=== PATIENT | male | born 1935 | race Caucasian/White ===

== ENCOUNTER 2021-07-09 04:01 | Inpatient (IN) | payer MEDICARE, SELFPAY ==
[2021-07-09] VITALS (10 sets, daily range): BP systolic 86–132; BP diastolic 52–82; PULSE 69–103; RESP 17–18; TEMP 36.2–38.2; O2SAT 93–96; BMI 29.7
--- NOTE | ~2021-07-09 | CT_ITS ---
EXAMINATION: CT brain wo con EXAM DATE: 07/09/2021 05:20 INDICATION: Altered mental status . TECHNIQUE: Spiral CT of the head was performed without contrast. Axial, coronal and sagittal images were reviewed. The dose-length product (DLP) for this examination was 605.33 mGy-cm. The exposure w as tailored according to patient size, and iterative reconstruction (ASIR) was used as additional dos e reduction technique. There is no prior study for comparison. FINDINGS: There is moderate size old left temporal lobe infarction with overlying craniotomy.. There is no acute intraparenchymal hemorrhage. No evidence of intraparenchymal brain mass lesion. No evid ence of acute infarction. Please note that initial head CT has limited sensitivity for small or acut e infarctions. There is mild periventricular and subcortical hypodensity, nonspecific but probably re lated to small vessel ischemic disease. There is moderate prominence of the sulci and ventricles re lated to cerebral atrophy. There is intracranial carotid arteriosclerosis. There are no extra-axia l collections. There is no mass effect or midline shift. Patient has had bilateral ocular lens surg alexus. Soft tissue is unremarkable. The visualized sinuses and mastoid air cells are well aerated. IMPRESSION: 1. 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 2. Chronic age related findings. Reviewed, dictated and finalized at location D. CE RUNNER
--- NOTE | ~2021-07-09 | XR_ITS ---
EXAMINATION: XR chest 1V portable DATE: 07/09/2021 05:21 INDICATION: Altered mental status. TECHNIQUE: A single frontal view of the chest was obtained. COMPARISON: None. FINDINGS: The chest demonstrates clear lungs without pneumonia, pleural effusion, or pneumothorax. Th e heart size is normal. IMPRESSION: 1. No acute cardiopulmonary disease. Reviewed, dictated and finalized at location A. BINDER
--- NOTE | 2021-07-09 04:21 | ECG_ITS ---
Measurements Intervals [place] Rate: 112 P: [place]: 0 QRS: 10 QRSD: 81 T: 208 QT: 302 QTc: 413 Interpretive Statements ATRIAL FIBRILLATION WITH RAPID VENTRICULAR RESPONSE INCOMPLETE RIGHT BUNDLE BRANCH BLOCK ST-T WAVE ABNORMALITY IN ANTEROLATERAL LEADS- CONSIDER ISCHEMIA ABNORMAL ECG Electronically Signed On 07-09-2021 7:26:46 COMMODITY MANAGER by Benny Lomas D.O.
[2021-07-09] MEDS: SODIUM CHLORIDE 0.9% IV 500 ML 999 ML IV CONT (04:34)
[2021-07-09] MEDS: ACETAMINOPHEN 500 MG TABLET 1000 MG PO (04:34)
[2021-07-09 04:48] LABS: Hematocrit 38.6 % (37.0-46.0); Hemoglobin 12.5 g/dL (12.4-15.3); Mean Corpuscular HGB Conc 32.4 g/dL (32.0-36.0); Mean Corpuscular Hemoglobin 31.1 pg (27.0-31.0); Platelet Count Result 110 K/mm3 (150-420); Red Blood Count 4.02 M/mm3 (4.70-6.10); Red Cell Distribution Width 13.1 % (11.6-14.4); White Blood Count 10.1 K/mm3 (4.8-10.8)
[2021-07-09 04:49] LABS: Basophils Absolute Auto 0.03 K/mm3 (0.00-0.10); Basophils Percent Auto 0.3 % (0.0-1.0); Eosinophils Absolute Auto 0.02 K/mm3 (0.02-0.50); Eosinophils Percent Auto 0.2 % (1.0-6.0); Immature Granulocyte Absolute 0.05 K/mm3 (0.00-0.00); Immature Granulocyte Percent A 0.5 % (0.0-0.0); Lymphocytes Absolute Auto 0.48 K/mm3 (1.10-4.50); Lymphocytes Percent Auto 4.8 % (18.0-42.0); Mean Platelet Volume 9.1 fl (8.7-11.0); Monocytes Absolute Auto 0.76 K/mm3 (0.10-0.90); Monocytes Percent Auto 7.5 % (2.0-11.0); Neutrophils Absolute Auto 8.7 K/mm3 (1.7-7.2); Neutrophils Percent Auto 86.7 % (50.0-70.0)
[2021-07-09 04:51] LABS: Appearance Urine Clear (Clear); Bilirubin Urine Negative (Negative); Color Urine Light Yellow (Yellow); Glucose Urine UA Negative (Negative); Ketones Urine Negative (Negative); Leukocyte Esterase Ur Negative (Negative); Nitrate Urine Negative (Negative); Protein Urine Negative (Negative); Urobilinogen Urine 0.2 mg/dL (0.2-1.0)
[2021-07-09 04:54] LABS: Add Urine Microscopic? YES; Bacteria Urine Trace /hpf; Blood Urine Trace-Intact (Negative); RBC Urine 0-2 /hpf (0-2); WBC Urine 0-3 /hpf (0-3)
[2021-07-09 05:01] LABS: INR 1.2; Partial Thromboplastin Time 34.1 SEC (23.90-30.70); Prothrombin Time 12.2 Seconds (9.50-12.10)
[2021-07-09 05:02] LABS: Lactic Acid Reflex 2.2 mmol/L (0.4-2.0)
[2021-07-09 05:10] LABS: Alanine Aminotransferase 27 U/L (16-63); Albumin Level 3.7 g/dL (3.4-5.0); Alkaline Phosphatase 105 U/L (46-116); Anion Gap 11 mmol/L (8-16); Aspartate Amino Transferase 16 U/L (15-37); Bilirubin,Total 0.4 mg/dL (0.00-1.00); Blood Urea Nitrogen 22 mg/dL (7-18); Calcium 8.6 mg/dL (8.5-10.1); Carbon Dioxide 28 mmol/L (21-32); Chloride 102 mmol/L (98-108); Creatine Kinase 224 U/L (39-308); Estimated CRCL calculation 44 ml/min; Estimated Glomerular Filt Rate 58; Glucose 131 mg/dL (70-99); Osmolality Calculated 297 mOsm/kg (285-295); Potassium 4.3 mmol/L (3.5-5.1); Sodium 141 mmol/L (136-145); Thyroid Stimulating Hormone 1.57 uIU/mL (0.36-3.74); Total Protein 7.2 g/dL (6.4-8.2)
[2021-07-09 05:21] LABS: NT Pro B Type Natriuretic Pept 3225 pg/mL (0-450)
[2021-07-09 05:47] LABS: SARS-CoV-2 RNA PCR Positive (Negative)
--- NOTE | 2021-07-09 06:03 | ED.AMS ---
HPI - Altered Mental Status General Chief Complaint: Altered Mental Status Stated Complaint: Confusion/Falls Source: patient and family History of Present Illness HPI narrative: this is a 86-year-old gentleman that presents via EMS with frequent falls and early this morning his found him on the floor could not get him up with no known injuries no bruising but does have altered mental status and confusion has a history of hypertension history of remote brain aneurysm and on anti seizure medication. The patient is pleasantly conflict confused with no neurological deficits no chest pain no shortness of breath does have a fever to 101 with no shortness of breath no abdominal pain no dysuria no diarrhea or constipation. complaint: altered mental status and confusion Onset (ago): week(s) Severity: mild Related Data Allergies Allergy/AdvReac Type Severity Reaction Status Date / Time No Known Allergies Allergy Verified 05/21/20 11:56 Review of Systems Review of Systems: All systems reviewed & are unremarkable except as noted in HPI and below PMFSH Past Medical History Medical History (Updated 07/09/21 @ 06:11 by Edgar Ferguson MD) Brain aneurysm 1985 Hyperlipidemia Hypertension Seizure disorder last seizure 2013. Surgical History Surgical History History of coronary artery stent placement 2004 Family History Family History Father Family history unknown Mother Family history unknown Social History Social History Smoking status: Former smoker Tobacco type: cigarettes Additional smoking assessment comments: 15 pack-year history Additional living arrangements comments: . Exam Const: General: healthy appearing, no acute distress and confusion Orientation/consciousness: patient oriented x3 Limitations: altered mental status HENMT: Head: normal to inspection Eyes: Conjunctivae: conjunctivae normal Pupils: Equal, round and reactive pupils present Neck: Neck: normal visual inspection, no lymphadenopathy and no meningeal signs Chest: Chest palpation & inspection: normal inspection of the chest Resp: Effort & Inspection: normal respiratory effort Auscultation: clear to auscultation bilaterally Cardio: Rate: regular rate Rhythm: regular rhythm GI: GI Palp: Yes Soft to palpation Percussion: Yes normal to percussion Urinary Catheter: Urinary Catheter: patent and draining Back/Spine/Pelvis: Back: no CVA tenderness Skin: General skin exam: normal color Rashes: no rashes Neuro: General: patient oriented x3 and moves all extremities Extrem: General: normal to inspection and no pedal edema Psych: Mental Status: mental status grossly normal Course Course Emergency Course: Labs x-rays reviewed with some family and the patient to be admitted otherwise is resting comfortably not acute distress. Vital Signs Vital signs: Vital Signs Temperature 38.2 C H 07/09/21 04:17 Pulse Rate 95 07/09/21 04:17 Respiratory Rate 18 07/09/21 04:17 Blood Pressure 132/82 07/09/21 04:17 Pulse Oximetry 95 07/09/21 04:17 Temperature 37.6 C H 07/09/21 05:36 Pulse Rate 93 07/09/21 05:34 Respiratory Rate 18 07/09/21 05:34 Blood Pressure 91/52 L 07/09/21 05:34 Pulse Oximetry 96 07/09/21 05:34 MDM - Altered Mental Status Lab Data Result diagrams: 07/09/21 04:40 07/09/21 04:40 Labs: Lab Results 07/09/21 07/09/21 07/09/21 Range/Units 04:40 04:40 04:40 WBC 10.1 (4.8-10.8) K/mm3 RBC 4.02 L (4.70-6.10) M/mm3 Hgb 12.5 (12.4-15.3) g/dL Hct 38.6 (37.0-46.0) % MCV 96.0 (78.0-102.0) fL MCH 31.1 H (27.0-31.0) pg MCHC 32.4 (32.0-36.0) g/dL RDW 13.1 (11.6-14.4) % Plt Count 110 L (150-420) K/mm3 MPV 9.1 (8.7-11.0) fl
--- NOTE | 2021-07-09 06:11 | PC.NURSE ---
Patient and spouse aware of plan to admit patient upstairs. patient verbalized understanding and all questions were answered for at this time.
[2021-07-09] MEDS: SODIUM CHLORIDE 0.9% IV 1,000 ML 999 ML IV CONT (06:15)
[2021-07-09] MEDS: SODIUM CHLORIDE 0.9% IV 1,000 ML 100 ML IV CONT ×3 (07:00→22:35)
--- NOTE | 2021-07-09 07:07 | ADMGEN ---
This patient, Segundo Roman, was admitted to 2nd Floor Room 209-1. Patient oriented to hospital policies, covid isolation and general routines including ID bracelet, bed and alarms, visiting hours, pain management, procedures, bathroom and other care routines, personal items, smoking policy, room service/diet, and visiting hours. Information on how to activate the Rapid Response Team has been discussed. Patient/Family are encouraged to report perceived risks to care and to ask questions if they do not understand what they are told or what they should do.
--- NOTE | 2021-07-09 07:30 | ECHO_ITS ---
Patient Info Name: Segundo Roman Age: 86 years : 1935 Gender: Male Ht: 69 in Wt: 201 lbs BSA: 2.13 m2 HR: 111 bpm BP: 112 / 78 mmHg Heart Rhythm: Atrial Fibrillation Exam Date: 07/10/2021 8:30 AM Exam Location: [facility], [place] Patient Status: Inpatient Admit Date: 07/09/2021 Staff Ordering Physician: Edgar Ferguson MD Preparer Making Department: Bridgette Levin Attending Provider: Edgar Ferguson MD Referring Physician: Phyllis ANAND; Exam Type: CA echo doppler color flow Study Info Indications I48.1 - Persistent atrial fibrillation Complete two-dimensional, color flow and Doppler transthoracic echocardiogram is performed. Summary 1. Complete two-dimensional, color flow and Doppler transthoracic echocardiogram is performed. 2. Left ventricular chamber dimension is normal. 3. Left ventricular systolic function is normal, estimated at 55-60%. 4. There is mildly increased left ventricular wall thickness. 5. The left ventricular diastolic function is abnormal. 6. E/e' 15 is elevated. 7. Left atrial chamber dimension is mildly enlarged. 8. There is mild aortic valve sclerosis. 9. There is mild mitral valve regurgitation. 10. Dilated inferior vena cava with <50% collapse upon inspiration consistent with significantly elevated right atrial pressure, 15 mmHg. Left Ventricle E/e' 15 is elevated. Left ventricular chamber dimension is normal. Left ventricular systolic function is normal, estimated at 55-60%. There is mildly increased left ventricular wall thickness. The left ventricular diastolic function is abnormal. Right Ventricle Right ventricular systolic function is normal and with normal TAPSE 2.1 cm. Right ventricular chamber dimension is normal. Left Atria Left atrial chamber dimension is mildly enlarged. Right Atria Right atrial chamber dimension is normal. Aortic Valve The aortic valve is trileaflet. There is mild aortic valve sclerosis. There is no aortic valve stenosis. There is no aortic valve regurgitation. Pulmonic Valve There is no pulmonic regurgitation. Mitral Valve There is no mitral valve stenosis. There is mild mitral valve regurgitation. Tricuspid Valve There is no tricuspid valve regurgitation. Pericardium/Pleural There is no pericardial effusion. Inferior Vena Cava Dilated inferior vena cava with <50% collapse upon inspiration consistent with significantly elevated right atrial pressure, 15 mmHg. Aorta The aortic root size at the sinus of Valsalva is normal. Left Ventricular Outflow Tract Name Value Normal LVOT 2D LVOT Diameter 2.1 cm LVOT Doppler LVOT Peak Velocity 78 cm/s LVOT Peak Gradient 2 mmHg LVOT Mean Gradient 2 mmHg LVOT VTI 16 cm LVOT VTI/AV VTI Ratio 0.7 LVOT Stroke Volume 53 ml Mitral Valve Name Value Normal
[2021-07-09 07:41] LABS: Reflex Lactic Acid Yes or No Add Lactic
[2021-07-09] MEDS: PHENYTOIN SODIUM 100 MG EXTENDED RELEASE CAP 500 MG BY MOUTH (08:16)
[2021-07-09] MEDS: ASPIRIN 325 MG ENTERIC TABLET PO ×2 (08:17→17:15)
--- NOTE | 2021-07-09 14:51 | PM.IMHP ---
H&P: HPI History of Present Illness Date/Time: 07/09/21 14:51 this is a 86-year-old male who presented to the emergency department with complaints of confusion and multiple falls. Patient has a past medical history of brain aneurysm, hyperlipidemia, hypertension and seizure. According to patient he will sleep on the edge of the be enrolled and landed on his face and abdomen. Patient noted the he attempted to get up off the floor and could not at that time. He did test positive for Covid and he has been vaccinated. Patient is alert and orientated to self, in location and occasionally gets confused he thought the year was 2020 and that the president was a woman. I am not sure if patient is confused or hard of hearing. 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 fib RVR 112. The patient denies SOB, CP, palpitation, extremity numbness, lightheadedness, dizziness, constipation, diarrhea, chills, or fever. Patient notes that he does not frequently fall. Time spent 60 minutes <SERVANDO Rojas - Last Filed: 07/09/21 15:01> Chief Complaint: Altered mental status frequent falls <SERVANDO Rojas - Last Filed: 07/09/21 15:01> Review of Systems Review of Systems: A 14 organ system Review of Systems was performed and pertinent positives included in the HPI, otherwise remaining ROS is negative. <SERVANDO Rojas - Last Filed: 07/09/21 15:01> [facility] Past Medical History Medical History: Medical History (Updated 07/09/21 @ 06:11 by Edgar Ferguson MD) Brain aneurysm 1985 Hyperlipidemia Hypertension Seizure disorder last seizure 2013. <SERVANDO Rojas - Last Filed: 07/09/21 15:01> Surgical History Surgical History: Surgical History History of coronary artery stent placement 2004 <SERVANDO Rojas - Last Filed: 07/09/21 15:01> Family History Family History: Family History Father Family history unknown Mother Family history unknown <SERVANDO Rojas - Last Filed: 07/09/21 15:01> Social History Social History: Social History Smoking status: Former smoker Tobacco type: cigarettes Additional smoking assessment comments: 15 pack-year history Alcohol intake: never Substance use: never Substance use type: does not use Additional living arrangements comments: . Spiritual care concerns: No <SERVANDO Rojas - Last Filed: 07/09/21 15:01> Meds Home Medications and Allergies Home medications: Home Medications Medication Instructions Recorded Confirmed Type cyclobenzaprine 10 mg tablet 10 mg PO TID PRN #60 tablet 05/21/20 07/09/21 Rx lisinopril 10 mg tablet See Rx Instructions .ROUTE 01/21/21 07/09/21 Rx .COMPLEX #90 tablet metoprolol succinate 50 mg See Rx Instructions .ROUTE 04/09/21 07/09/21 Rx tablet,extended release 24 hr .COMPLEX #90 tablet phenytoin sodium extended 100 mg See Rx Instructions .ROUTE 04/09/21 07/09/21 Rx capsule .COMPLEX #450 cap <SERVANDO Rojas - Last Filed: 07/09/21 15:01> Allergies/Adverse reactions: Allergies Allergy/AdvReac Type Severity Reaction Status Date / Time No Known Allergies Allergy Verified 05/21/20 11:56 <SERVANDO Rojas - Last Filed: 07/09/21 15:01> Vital Signs Vital Signs - 24 hr 07/09/21 04:17 07/09/21 05:34 07/09/21 05:36 Temperature 100.7 F H 99.8 F H 99.7 F H Pulse Rate 95 93 Respiratory Rate 18 18 Blood Pressure 132/82 91/52 L Pulse Oximetry 95 96 07/09/21 06:12 07/09/21 06:30 07/09/21 07:13
[2021-07-10] VITALS (22 sets, daily range): BP systolic 111–150; BP diastolic 65–95; PULSE 87–135; RESP 16–20; TEMP 36.8–37.2; O2SAT 93–97
[2021-07-10] MEDS: PHENYTOIN SODIUM 100 MG EXTENDED RELEASE CAP 500 MG BY MOUTH (08:24)
[2021-07-10] MEDS: ASPIRIN 325 MG ENTERIC TABLET PO ×2 (08:24→17:10)
[2021-07-10 09:02] LABS: Hematocrit 40.4 % (37.0-46.0); Hemoglobin 12.9 g/dL (12.4-15.3); Immature Platelet Fraction Pct 1.6 % (1.0-7.0); Mean Corpuscular HGB Conc 31.9 g/dL (32.0-36.0); Mean Corpuscular Hemoglobin 31.5 pg (27.0-31.0); Mean Corpuscular Volume 98.5 fL (78.0-102.0); Mean Platelet Volume 9.3 fl (8.7-11.0); Platelet Count Result 119 K/mm3 (150-420); Red Cell Distribution Width 13.2 % (11.6-14.4); White Blood Count 5.8 K/mm3 (4.8-10.8)
[2021-07-10 09:35] LABS: Alanine Aminotransferase 30 U/L (16-63); Albumin Level 3.4 g/dL (3.4-5.0); Alkaline Phosphatase 92 U/L (46-116); Anion Gap 10 mmol/L (8-16); Aspartate Amino Transferase 38 U/L (15-37); Bilirubin,Total 0.3 mg/dL (0.00-1.00); Blood Urea Nitrogen 16 mg/dL (7-18); Calcium 8.3 mg/dL (8.5-10.1); Carbon Dioxide 25 mmol/L (21-32); Chloride 108 mmol/L (98-108); Estimated CRCL calculation 50 ml/min; Estimated Glomerular Filt Rate > 60; Glucose 102 mg/dL (70-99); NT Pro B Type Natriuretic Pept 2095 pg/mL (0-450); Osmolality Calculated 297 mOsm/kg (285-295); Potassium 3.9 mmol/L (3.5-5.1); Sodium 143 mmol/L (136-145); Total Protein 6.9 g/dL (6.4-8.2)
[2021-07-10] MEDS: dilTIAZem HCl INJ 25 MG/5 ML VIAL 10 MG IV PUSH (10:20)
[2021-07-10 10:25] LABS: Lactic Acid Reflex 1.6 mmol/L (0.4-2.0)
[2021-07-10] MEDS: FUROSEMIDE INJ 40 MG/4 ML VIAL IV PUSH (10:27)
[2021-07-10] MEDS: METOPROLOL SUCCINATE EXT REL 25 MG TABCR PO ×2 (10:28→17:10)
--- NOTE | 2021-07-10 11:30 | PCOTNOTE ---
Per nursing, hold OT this AM secondary to high heart rate. Will check in on patient for PM treatment. MS
--- NOTE | 2021-07-10 11:50 | PC.NURSE ---
Patient ordered to have parker catheter inserted and cardizem drip. VS monitoring continues per protocol
--- NOTE | 2021-07-10 13:16 | ECG_ITS ---
Measurements Intervals [place] Rate: 108 P: [place]: 0 QRS: 6 QRSD: 77 T: -74 QT: 311 QTc: 417 Interpretive Statements ATRIAL FIBRILLATION WITH RAPID VENTRICULAR RESPONSE INCOMPLETE RIGHT BUNDLE BRANCH BLOCK DELAYED PRECORDIAL R/S TRANSITION BORDERLINE ST-T WAVE ABNORMALITY- INF/LAT LEADS BASELINE ARTIFACT- I, II, III, AVR, AVL ABNORMAL ECG Electronically Signed On 07-10-2021 13:24:07 ADVERTISING SUPERVISOR by Benny Lomas D.O.
--- NOTE | 2021-07-10 13:31 | PCOTNOTE ---
Per PATROL INSPECTOR, patient continues to be on hold secondary to high heart rate. MS
[2021-07-10 13:57] LABS: Troponin I 24.8 ng/L (0.00-60.4)
--- NOTE | 2021-07-10 15:49 | WPDPN ---
Progress Note: A&P Assessment and Plan (1) Altered mental status: Qualifiers: Altered mental status type: unspecified Qualified Code(s): R41.82 - Altered mental status, unspecified Code(s): R41.82 - Altered mental status, unspecified Status: Acute Assessment and Plan: According to his he has been confused for approximately 1 year. Possible worsening due to Covid Possibly undiagnosed dementia Will complete a Mini-Mental Lactic acid now within normal limits CT of the head with no new infarcts Continue PT OT (2) COVID-19: Code(s): U07.1 - COVID-19 Status: Acute Assessment and Plan: Currently not requiring any treat patient does not have any respiratory distress or oxygen need. Does not meet criteria for dexamethasone or remdesivir Tested + 07/09/2021 (3) Hypertension: Code(s): I10 - Essential (primary) hypertension Status: Chronic Assessment and Plan: Patient blood pressure soft on admission currently 139/80 Continue metoprolol and lisinopril Vital signs as ordered Will adjust medications (4) Hyperlipidemia: Code(s): E78.5 - Hyperlipidemia, unspecified Status: Chronic Assessment and Plan: No home statin ordered (5) Seizure disorder: Code(s): G40.909 - Epilepsy, unspecified, not intractable, without status epilepticus Status: Chronic Assessment and Plan: Continue phenytoin (6) Afib: Code(s): I48.91 - Unspecified atrial fibrillation Status: Acute Assessment and Plan: HAS-BLED 4 points high risk for major bleed Patient with a history of brain hemorrhage Spoke with family decided not to use anticoagulant will use high-dose aspirin instead Continue metoprolol 50 mg daily Subjective Date/time seen: 07/10/21 15:49 spoke with patient's today according to his , patient has been confused for approximately 1 year. She notes that he possibly has dementia but not medically diagnosed with it. Patient heart rate increased as high as 150 today started Cardizem drip will titrate off with parameters. patient takes metoprolol 50 mg daily which was discontinued on admission due to hypotension. I have resumed patient's home metoprolol at 50 mg daily. We will continue to monitor. Patient appears to be short of breath with activity. Patient will not Review of Systems Review of Systems: A 14 organ system Review of Systems was performed and pertinent positives included in the HPI, otherwise remaining ROS is negative. Exam Narrative: GENERAL: This is a well-nourished, pleasantly confused, in no apparent distress. HEAD: normocephalic, atraumatic. EYES: PERRL. Sclera clear/white. Vision is grossly intact. EARS: External ears normal, auditory canals clear and without drainage, TMs normal without perforation. Hearing grossly intact. NOSE: External nose normal with no obvious nasal discharge, nares without redness, no rhinorrhea. THROAT: Mucous membranes moist, posterior pharynx clear. NECK: Neck supple, non-tender without lymphadenopathy, masses or thyromegaly. CARDIOVASCULAR: Irregular rate and irregular rhythm without murmurs, gallops, or rubs. RESPIRATORY: Clear to auscultation. Breath sounds equal bilaterally. No wheezes, rales, or rhonchi. GASTROINTESTINAL: Abdomen soft, non-tender, nondistended. Bowel sounds are active. No hepato-splenomegaly, or palpable masses. No guarding. SKIN: warm, intact with no suspicious lesions or rash, good texture and turgor. NEURO: awake, alert, to self. EXTREMITIES: Normal range of motion. No edema. No calf tenderness. Negative Homans sign bilaterally. BACK: Nontender without deformity or crepitance. No flank tenderness. Objective Data Vital Signs Vital Signs: Vital Signs - 24 hr 07/09/21 16:00 07/09/21 20:00 07/10/21 00:00 Temperature 97.1 F L 98.6 F Pulse Rate 90 96 87 Respiratory Rate 17 18 Blood Pressure 123/64 125/79 Pulse Oxim
--- NOTE | 2021-07-10 21:00 | PC.NURSE ---
Cardizem turned down to 8mg/hour. Patient watching tv. No distress noted. Call light in reach.
--- NOTE | 2021-07-10 22:15 | PC.NURSE ---
Cardizem turned down to 6mg/hour. Patient in bed watching tv. No distress noted. Call light in reach.
--- NOTE | 2021-07-10 23:15 | PC.NURSE ---
Cardizem turned down to 4mg/hr. Patient was sleeping when nurse entered room. Denies pain/complaints/needs @ this time. No distress noted. Call light in reach.
[2021-07-11] VITALS (9 sets, daily range): BP systolic 112–128; BP diastolic 59–75; PULSE 89–102; RESP 18–20; TEMP 36.6–37; O2SAT 94–99
--- NOTE | 2021-07-11 00:19 | PC.NURSE ---
Dr. Haskins notified of cardizem drip being turned down to 2 as pulse rate is between 90-105. She advised to continue cardizem drip for another 20 minutes; If pulse rate continues to be between 90-105, cardizem may be discontinued.
--- NOTE | 2021-07-11 00:40 | PC.NURSE ---
Cardizem discontinued as Dr Rodriguez ordered. Patient in no distress. Denies pain/complaints/needs @ this time. Call light in reach.
[2021-07-11 05:27] LABS: Hematocrit 37.2 % (37.0-46.0); Hemoglobin 12.2 g/dL (12.4-15.3); Immature Platelet Fraction Pct 2.2 % (1.0-7.0); Mean Corpuscular HGB Conc 32.8 g/dL (32.0-36.0); Mean Corpuscular Hemoglobin 31.4 pg (27.0-31.0); Mean Corpuscular Volume 95.6 fL (78.0-102.0); Mean Platelet Volume 9.2 fl (8.7-11.0); Platelet Count Result 123 K/mm3 (150-420); Red Blood Count 3.89 M/mm3 (4.70-6.10)
[2021-07-11 05:55] LABS: Alanine Aminotransferase 32 U/L (16-63); Albumin Level 3.3 g/dL (3.4-5.0); Alkaline Phosphatase 88 U/L (46-116); Anion Gap 9 mmol/L (8-16); Aspartate Amino Transferase 35 U/L (15-37); Bilirubin,Total 0.4 mg/dL (0.00-1.00); Blood Urea Nitrogen 13 mg/dL (7-18); CRP 8.8 mg/dL (0.0-0.9); Calcium 8.6 mg/dL (8.5-10.1); Carbon Dioxide 27 mmol/L (21-32); Chloride 101 mmol/L (98-108); Estimated CRCL calculation 49 ml/min; Estimated Glomerular Filt Rate > 60; Glucose 99 mg/dL (70-99); Magnesium 2.1 mg/dL (1.8-2.4); NT Pro B Type Natriuretic Pept 1504 pg/mL (0-450); Osmolality Calculated 284 mOsm/kg (285-295); Potassium 4.2 mmol/L (3.5-5.1); Sodium 137 mmol/L (136-145); Total Protein 6.9 g/dL (6.4-8.2)
[2021-07-11] MEDS: PHENYTOIN SODIUM 100 MG EXTENDED RELEASE CAP 500 MG BY MOUTH (07:59)
[2021-07-11] MEDS: METOPROLOL SUCCINATE EXT REL 50 MG TABCR PO (07:59)
[2021-07-11] MEDS: ASPIRIN 325 MG ENTERIC TABLET PO ×2 (08:00→17:13)
[2021-07-11] MEDS: FUROSEMIDE INJ 40 MG/4 ML VIAL IV PUSH (08:02)
--- NOTE | 2021-07-11 12:55 | P.PN_ITS ---
Progress Note: A&P Assessment and Plan (1) Altered mental status: Qualifiers: Altered mental status type: unspecified Qualified Code(s): R41.82 - Altered mental status, unspecified Code(s): R41.82 - Altered mental status, unspecified Status: Acute Assessment and Plan: * According to his he has been confused for approximately 1 year. Possible worsening due to Covid * Possibly undiagnosed dementia * Will complete a Mini-Mental * Lactic acid now within normal limits * CT of the head with no new infarcts * Continue PT OT (2) COVID-19: Code(s): U07.1 - COVID-19 Status: Acute Assessment and Plan: * Currently not requiring any treat patient does not have any respiratory distress or oxygen need. Does not meet criteria for dexamethasone or remd esivir * Tested + 07/09/2021 (3) Hypertension: Code(s): I10 - Essential (primary) hypertension Status: Chronic Assessment and Plan: * Patient blood pressure soft on admission currently 115/59 * Continue metoprolol and lisinopril * Vital signs as ordered * Will adjust medications (4) Hyperlipidemia: Code(s): E78.5 - Hyperlipidemia, unspecified Status: Chronic Assessment and Plan: * No home statin ordered (5) Seizure disorder: Code(s): G40.909 - Epilepsy, unspecified, not intractable, without status epilepticus Status: Chronic Assessment and Plan: * Continue phenytoin (6) Afib: Code(s): I48.91 - Unspecified atrial fibrillation Status: Acute Assessment and Plan: * HAS-BLED 4 points high risk for major bleed * Patient with a history of brain hemorrhage * Spoke with family decided not to use anticoagulant will use high-dose aspirin instead * Continue metoprolol 50 mg daily * Yesterday patient patient on a Cardizem drip today he is sinus rhythm Cardizem drip discontinued continue metoprolol Subjective Date/time seen: 07/11/21 12:55 PICC line was uneventful. He remains pleasantly confused. He has converted to sinus rhythm. The patient denies SOB, CP, palpitation, extremity numbness, lightheadedness, dizziness, constipation, diarrhea, chills, or fever. Plan to discharge patient tomorrow Review of Systems Review of Systems: A 14 organ system Review of Systems was performed and pertinent positives included in the HPI, otherwise remaining ROS is negative. Exam Narrative: GENERAL: This is a well-nourished, pleasantly confused, in no apparent distress. HEAD: normocephalic, atraumatic. EYES: PERRL. Sclera clear/white. Vision is grossly intact. EARS: External ears normal, auditory canals clear and without drainage, TMs norm al without perforation. Hearing grossly intact. NOSE: External nose normal with no obvious nasal discharge, nares without redness, no rhinorrhea. THROAT: Mucous membranes moist, posterior pharynx clear. NECK: Neck supple, non-tender without lymphadenopathy, masses or thyromegaly. CARDIOVASCULAR: Irregular rate and irregular rhythm without murmurs, gallops, or rubs. RESPIRATORY: Clear to auscultation. Breath sounds equal bilaterally. No wheezes, rales, or rhonchi. GASTROINTESTINAL: Abdomen soft, non-tender, nondistended. Bowel sounds are active. No hepato-splenomegaly, or palpable masses. No guarding. SKIN: warm, intact with no suspicious lesions or rash, good texture and turgor. NEURO: awake, alert, to self. EXTREMITIES: Normal range of motion. No edema. No calf tenderness. Negative Homans sign bilaterally. BACK: Nontender without deformity or crepitance. No
--- NOTE | 2021-07-11 12:55 | WPDPN ---
Progress Note: A&P Assessment and Plan (1) Altered mental status: Qualifiers: Altered mental status type: unspecified Qualified Code(s): R41.82 - Altered mental status, unspecified Code(s): R41.82 - Altered mental status, unspecified Status: Acute Assessment and Plan: According to his he has been confused for approximately 1 year. Possible worsening due to Covid Possibly undiagnosed dementia Will complete a Mini-Mental Lactic acid now within normal limits CT of the head with no new infarcts Continue PT OT (2) COVID-19: Code(s): U07.1 - COVID-19 Status: Acute Assessment and Plan: Currently not requiring any treat patient does not have any respiratory distress or oxygen need. Does not meet criteria for dexamethasone or remdesivir Tested + 07/09/2021 (3) Hypertension: Code(s): I10 - Essential (primary) hypertension Status: Chronic Assessment and Plan: Patient blood pressure soft on admission currently 115/59 Continue metoprolol and lisinopril Vital signs as ordered Will adjust medications (4) Hyperlipidemia: Code(s): E78.5 - Hyperlipidemia, unspecified Status: Chronic Assessment and Plan: No home statin ordered (5) Seizure disorder: Code(s): G40.909 - Epilepsy, unspecified, not intractable, without status epilepticus Status: Chronic Assessment and Plan: Continue phenytoin (6) Afib: Code(s): I48.91 - Unspecified atrial fibrillation Status: Acute Assessment and Plan: HAS-BLED 4 points high risk for major bleed Patient with a history of brain hemorrhage Spoke with family decided not to use anticoagulant will use high-dose aspirin instead Continue metoprolol 50 mg daily Yesterday patient patient on a Cardizem drip today he is sinus rhythm Cardizem drip discontinued continue metoprolol Subjective Date/time seen: 07/11/21 12:55 PICC line was uneventful. He remains pleasantly confused. He has converted to sinus rhythm. The patient denies SOB, CP, palpitation, extremity numbness, lightheadedness, dizziness, constipation, diarrhea, chills, or fever. Plan to discharge patient tomorrow Review of Systems Review of Systems: A 14 organ system Review of Systems was performed and pertinent positives included in the HPI, otherwise remaining ROS is negative. Exam Narrative: GENERAL: This is a well-nourished, pleasantly confused, in no apparent distress. HEAD: normocephalic, atraumatic. EYES: PERRL. Sclera clear/white. Vision is grossly intact. EARS: External ears normal, auditory canals clear and without drainage, TMs normal without perforation. Hearing grossly intact. NOSE: External nose normal with no obvious nasal discharge, nares without redness, no rhinorrhea. THROAT: Mucous membranes moist, posterior pharynx clear. NECK: Neck supple, non-tender without lymphadenopathy, masses or thyromegaly. CARDIOVASCULAR: Irregular rate and irregular rhythm without murmurs, gallops, or rubs. RESPIRATORY: Clear to auscultation. Breath sounds equal bilaterally. No wheezes, rales, or rhonchi. GASTROINTESTINAL: Abdomen soft, non-tender, nondistended. Bowel sounds are active. No hepato-splenomegaly, or palpable masses. No guarding. SKIN: warm, intact with no suspicious lesions or rash, good texture and turgor. NEURO: awake, alert, to self. EXTREMITIES: Normal range of motion. No edema. No calf tenderness. Negative Homans sign bilaterally. BACK: Nontender without deformity or crepitance. No flank tenderness. Objective Data Vital Signs Vital Signs: Vital Signs - 24 hr 07/10/21 13:25 07/10/21 14:36 07/10/21 15:25 Temperature 98.8 F Pulse Rate 91 94 94 Respiratory Rate 16 Blood Pressure 116/66 119/71 139/80 Pulse Oximetry 97 07/10/21 16:00 07/10/21 16:30 07/10/21 17:10 Temperature Pulse Rate 108 H 134 H 128 H Respiratory Rate Blood Pressure 132/77 Pulse Oximetry
[2021-07-12] VITALS: BP 117/70; PULSE 90; RESP 20; TEMP 36.3; O2SAT 96
[2021-07-12 04:00] VITALS: PULSE 101
[2021-07-12 05:42] LABS: Hematocrit 40.1 % (37.0-46.0); Hemoglobin 12.8 g/dL (12.4-15.3); Mean Corpuscular HGB Conc 31.9 g/dL (32.0-36.0); Mean Corpuscular Hemoglobin 30.1 pg (27.0-31.0); Mean Corpuscular Volume 94.4 fL (78.0-102.0); Mean Platelet Volume 9.7 fl (8.7-11.0); Platelet Count Result 143 K/mm3 (150-420); Red Blood Count 4.25 M/mm3 (4.70-6.10); Red Cell Distribution Width 12.9 % (11.6-14.4); White Blood Count 6.4 K/mm3 (4.8-10.8)
[2021-07-12 06:01] LABS: Alanine Aminotransferase 31 U/L (16-63); Albumin Level 3.3 g/dL (3.4-5.0); Alkaline Phosphatase 89 U/L (46-116); Anion Gap 8 mmol/L (8-16); Aspartate Amino Transferase 37 U/L (15-37); Bilirubin,Total 0.3 mg/dL (0.00-1.00); Blood Urea Nitrogen 19 mg/dL (7-18); Calcium 8.5 mg/dL (8.5-10.1); Carbon Dioxide 29 mmol/L (21-32); Chloride 103 mmol/L (98-108); Estimated CRCL calculation 45 ml/min; Estimated Glomerular Filt Rate > 60; Glucose 99 mg/dL (70-99); Osmolality Calculated 292 mOsm/kg (285-295); Potassium 3.8 mmol/L (3.5-5.1); Sodium 140 mmol/L (136-145); Total Protein 6.9 g/dL (6.4-8.2)
[2021-07-12] MEDS: FUROSEMIDE INJ 40 MG/4 ML VIAL IV PUSH (07:59)
[2021-07-12] MEDS: ASPIRIN 325 MG ENTERIC TABLET PO (07:59)
[2021-07-12 08:00] VITALS: BP 122/76; PULSE 100; PULSE 110; PULSE 120; RESP 18; TEMP 36.7; O2SAT 99
[2021-07-12] MEDS: PHENYTOIN SODIUM 100 MG EXTENDED RELEASE CAP 500 MG BY MOUTH (08:00)
[2021-07-12] MEDS: METOPROLOL SUCCINATE EXT REL 50 MG TABCR PO (08:00)
--- NOTE | 2021-07-12 10:23 | PM.DS ---
DS: Admitting Diagnosis Discharge Date 07/12/2021 Admitting Diagnosis A. fib with Covid and confusion DS: Discharge Diagnosis Discharge Diagnosis (1) Altered mental status: Qualifiers: Altered mental status type: unspecified Qualified Code(s): R41.82 - Altered mental status, unspecified Code(s): R41.82 - Altered mental status, unspecified Status: Acute Assessment and Plan: According to his he has been confused for approximately 1 year. Possible worsening due to Covid Possibly undiagnosed dementia Will complete a Mini-Mental Lactic acid now within normal limits CT of the head with no new infarcts Continue PT OT with home health nursing (2) COVID-19: Code(s): U07.1 - COVID-19 Status: Acute Assessment and Plan: Currently not requiring any treat patient does not have any respiratory distress or oxygen need. Does not meet criteria for dexamethasone or remdesivir Tested + 07/09/2021 (3) Hypertension: Code(s): I10 - Essential (primary) hypertension Status: Chronic Assessment and Plan: Stable Continue home medication (4) Hyperlipidemia: Code(s): E78.5 - Hyperlipidemia, unspecified Status: Chronic Assessment and Plan: No home statin ordered (5) Seizure disorder: Code(s): G40.909 - Epilepsy, unspecified, not intractable, without status epilepticus Status: Chronic Assessment and Plan: Continue phenytoin (6) Afib: Code(s): I48.91 - Unspecified atrial fibrillation Status: Acute Assessment and Plan: Controlled A. fib HAS-BLED 4 points high risk for major bleed Patient with a history of brain hemorrhage Spoke with family decided not to use anticoagulant will use high-dose aspirin instead Continue metoprolol 50 mg daily DS: Summary Hospital Course Reason for hospitalization: COVID AND CPNFUSION Hospital Course: this is a 86-year-old male who presented to the emergency department with complaints of confusion and multiple falls. Patient has a past medical history of brain aneurysm, hyperlipidemia, hypertension and seizure. According to patient he will sleep on the edge of the be enrolled and landed on his face and abdomen. Patient noted the he attempted to get up off the floor and could not at that time. He did test positive for Covid and he has been vaccinated. According to the patient's he has been diagnosed with A. fib in the past. We discussed the use of anticoagulant in great detail on 2 occasions. I informed his that with [facility] smart 2 medications are usually use a beta-mary to control his rate and anticoagulant to prevent clot formation. I informed her that with the use of anticoagulant it increases his chances of hemorrhaging with his history of frequent falls it is not advised that he use anticoagulant but a high dose aspirin instead it was agreed on by patient's that he will discharge on a high dose aspirin and discussed the use of anticoagulant with his primary care physician Dr. Chao. Patient condition has improved and he is anxious to go home with his. The patient denies SOB, CP, palpitation, extremity numbness, lightheadedness, dizziness, constipation, diarrhea, chills, or fever. Time Spent with Patient Time attestation: Total time spent providing and/or coordinating discharge services:60 min Exam Narrative: GENERAL: This is a well-nourished, pleasantly confused, in no apparent distress. HEAD: normocephalic, atraumatic. EYES: PERRL. Sclera clear/white. Vision is grossly intact. EARS: External ears normal, auditory canals clear and without drainage, TMs normal without perforation. Hearing grossly intact. NOSE: External nose normal with no obvious nasal discharge, nares without redness, no rhinorrhea. THROAT: Mucous membranes moist, posterior pharynx clear. NECK: Neck supple, non-tender without lymphadenopathy, masses or thyromegaly. CARDIOVASCULAR: Irregular
--- NOTE | 2021-07-12 11:05 | PC.NURSE ---
Patient catheter removed in anticipation of discharge. Patient tolerated well. Will monitor for urination.
[2021-07-12 12:00] VITALS: PULSE 100
--- NOTE | 2021-07-12 12:28 | PC.NURSE ---
Patient discharged to home with personal belongings and home medications. Discharge instructions were reviewed with patient and his . Patient and voiced understanding of discharge instructions.Transported out of facility via w/c, with nurse assist.
--- NOTE | 2021-07-16 11:23 | PC.NURSE ---
Pt states he received and understood his discharge instructions. Pt states everything was wonderful, give the nurses my love .
== END 2021-07-12 12:15 | disposition home health service (06) | DRG 178 ==
LOC: CHSED 06:11 → CHS2ND 06:20
PROVIDERS: Nurse Practitioner; Admitting Provider Emergency Medicine; Emergency Provider Emergency Medicine; PCP Family Medicine; Visit Provider Emergency Medicine
DX: U07.1 COVID-19 (principal); I48.20 Chronic atrial fibrillation, unspecified; I10 Essential (primary) hypertension; E78.5 Hyperlipidemia, unspecified; G40.909 Epilepsy, unspecified, not intractable, without status epilepticus; R29.6 Repeated falls; Z95.5 Presence of coronary angioplasty implant and graft; Z87.891 Personal history of nicotine dependence
CPT/HCPCS: 36415; 70450; 71045; 80053; 81001; 82550; 83605; 83735; 83880; 84443; 84484; 85025; 85027; 85055; 85610; 85730; 86140; 87040; 93005; 93306; 96360; 97110; 97161; 97165; 97530; 97535; 99285; A9270; C9803; J1940; J7030; J7040; U0003; U0005

== ENCOUNTER 2021-07-29 08:32 | Outpatient (CLI) | payer MEDICARE, SELFPAY ==
--- NOTE | 2021-07-29 08:34 | ECG_ITS ---
Measurements Intervals [place] Rate: 77 P: IN: 0 QRS: 70 QRSD: 79 T: -78 QT: 389 QTc: 442 Interpretive Statements ATRIAL FLUTTER/TACHYCARDIA INCOMPLETE RIGHT BUNDLE BRANCH BLOCK DELAYED PRECORDIAL R/S TRANSITION ST-T WAVE ABNORMALITY IN INF/LAT LEADS- CONSIDER ISCHEMIA ABNORMAL ECG Electronically Signed On 07-29-2021 9:41:14 [employer] by Benny Lomas D.O.
== END 2021-07-29 08:33 | disposition home or self-care (01) ==
LOC: CHSCARD 08:34
PROVIDERS: PCP Family Medicine; Visit Provider Family Medicine
DX: I48.91 Unspecified atrial fibrillation (principal); U07.1 COVID-19
CPT/HCPCS: 93005

== ENCOUNTER 2022-10-23 10:09 | Outpatient (CLI) | payer MEDICARE, SELFPAY ==
--- NOTE | ~2022-10-23 | MR_ITS ---
EXAMINATION: MR brain IAC wo con DATE: 10/23/2022 12:57 INDICATION: Gait changes. Disequilibrium. Frequent falls. TECHNIQUE: Magnetic resonance imaging (MRI) of the brain, brainstem, and internal auditory canals was performed without intravenous contrast. COMPARISON: Head CT 07/09/2021 FINDINGS: There is chronic encephalomalacia in the left temporal lobe and left insula. There are scat tered areas of nonspecific increased T2-weighted signal intensity in the cerebral white matter, which is within normal limits for the patient's age. There is no intracranial hemorrhage, acute infarction , or abnormal intracranial mass lesion. There is ex vacuo dilatation of temporal horn of left lateral ventricle. There is mild mucosal thickening in the paranasal sinuses. There are likely changes of oc ular lens replacement surgeries. There are small bilateral mastoid effusions. There are changes of le ft craniotomy. IMPRESSION: 1. 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 Reviewed, dictated and finalized at location A.
== END 2022-10-23 10:10 | disposition home or self-care (01) ==
LOC: CHSIMG 10:10
PROVIDERS: PCP Family Medicine; Visit Provider Family Medicine
DX: R26.81 Unsteadiness on feet (principal); G93.89 Other specified disorders of brain
CPT/HCPCS: 70551

== ENCOUNTER 2022-10-26 08:48 | Emergency (ER) | payer MEDICARE, SELFPAY ==
--- NOTE | ~2022-10-26 | XR_ITS ---
EXAMINATION: XR toe 1st RT min 2V DATE: 10/26/2022 09:21 INDICATION: Right great toe injury. TECHNIQUE: 4 views of right great toe were obtained. COMPARISON: None. FINDINGS: There is mild hallux valgus. There is a comminuted fracture of base of first distal phalanx in near-anatomic alignment. 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 IMPRESSION: 1. Comminuted fracture of base of first distal phalanx. Reviewed, dictated and finalized at location A.
--- NOTE | 2022-10-26 08:59 | ED.LOWEXIN ---
HPI - Extremity Injury (Lower) General Chief Complaint: Wound/Laceration Stated Complaint: right great toe Time Seen by Provider: 10/26/22 08:53 Source: patient and family () Mode of arrival: wheelchair Limitations: no limitations History of Present Illness HPI Narrative: 87 year old male presents to the Emergency Department complaining of right great toe injury. Patient states he was walking to the bathroom and his toe caught on something and had flexion type mechanism of injury. Denies striking toe on anything. Has laceration across toe just proximal to nail. Denies pain. Denies numbness or tingling. States his toe nail has been thickened. 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) Injury: Right: toes Type of Injury: hyperflexion and laceration Place: home Severity: moderate Severity scale (1-10): 5 Relieving factors: other (denies pain) Exacerbating factors: nothing Other symptoms: none Related Data Home Medications Medication Instructions Recorded Confirmed aspirin 325 mg tablet,delayed 325 mg PO DAILY 10/03/21 10/26/22 release multivit, min cmb #8-FA-co cap PO 10/03/21 06/30/22 [id number] 3 0.5 mg-30 mg-150 mg capsule Allergies Allergy/AdvReac Type Severity Reaction Status Date / Time No Known Allergies Allergy Verified 10/26/22 09:09 Review of Systems Review of Systems: All systems reviewed & are unremarkable except as noted in HPI and below Constitutional: Constitutional: Reports as per HPI and Reports no additional constitutional complaints Eyes: Eyes: Reports as per HPI and Reports no additional eye complaints ENT: Reports system reviewed and no additional complaints, except as documented Cardiovascular: Cardiovascular: Reports as per HPI and Reports no additional cardiovascular complaints Respiratory: Respiratory: Reports as per HPI and Reports no additional respiratory complaints Gastrointestinal: Gastrointestinal: Reports as per HPI and Reports no additional gastrointestinal complaints Genitourinary: Genitourinary: Reports no additional male genitourinary complaints Musculoskeletal: Musculoskeletal: Reports no additional musculoskeletal complaints Comments: no pain to right great toe Integumentary/Breasts: Skin/Breast: Reports system reviewed and no additional complaints, except as docu Comments: laceration across right great toe Neurologic: Reports system reviewed and no additional complaints, except as documented, Denies focal weakness, Denies numbness and Denies weakness Psychiatric: Psychiatric: Reports no additional psychiatric complaints Endocrine: Endocrine: Reports no additional endocrine complaints Hematologic/Lymphatic: Hematologic/Lymphatic: Reports no additional hematologic/lymphatic complaints Allergic/Immunologic: Allergic/Immunologic: Reports no additional allergic/immunologic complaints PMFSH Past Medical History Medical History (Updated 10/26/22 @ 10:28 by Sergio Jasso MD) Brain aneurysm 1985 Hyperlipidemia Hypertension Seizure disorder last seizure 2013. Surgical History Surgical History History of coronary artery stent placement 2004 Family History Family History Father Family history unknown Mother Family history unknown Social History Social History Smoking status: Never smoker Tobacco type: cigarettes Additional smoking assessment comments: 15 pack-year history Alcohol intake: never Substance use: never Substance use type: does not use Additional living arrangements comments: . Spiritual care concerns: No Exam Const: General: healthy appearing Nutritional Appearance: well nourished Orientation/consciousness: patient oriented x3 Limitations: no limitations HENMT: Head: normal to inspection
[2022-10-26 09:00] VITALS: BP 138/100; PULSE 71; RESP 18; TEMP 36.3; O2SAT 95
--- NOTE | 2022-10-26 09:37 | PC.NURSE ---
Pt denies falling, states his foot bent downward when he was walking. is at bedside but did not witness pt's injury, states there was blood all over the bathroom from the injury. Pt has no complaints of any pain and no other injuries.
[2022-10-26 09:50] VITALS: BP 102/82; PULSE 78; RESP 18; O2SAT 97
--- NOTE | 2022-10-26 10:24 | PC.NURSE ---
ERP glued laceration closed, tape applied to splint toe and then camelia taped to second toe.
[2022-10-26] MEDS: TETANUS/DIPHTHERIA TOXOIDS ADSORB 0.5 ML VIAL (*BKC) IM (10:28)
== END 2022-10-26 10:57 | disposition home or self-care (01) ==
PROVIDERS: Emergency Provider Emergency Medicine; PCP Family Medicine
DX: S91.111A Laceration without foreign body of right great toe without damage to nail, initial encounter (principal); Z23 Encounter for immunization; W45.8XXA Other foreign body or object entering through skin, initial encounter; Y92.002 Bathroom of unspecified non-institutional (private) residence as the place of occurrence of the external cause
CPT/HCPCS: 12001; 73660; 90471; 90714; 99283

== ENCOUNTER 2022-12-01 13:15 | Outpatient (CLI) | payer MEDICARE, SELFPAY ==
--- NOTE | ~2022-12-01 | XR_ITS ---
EXAMINATION: XR toe 1st RT min 2V DATE: 12/01/2022 13:41 INDICATION: 3 weeks postop evaluation of the right great toe. TECHNIQUE: Dorsal plantar, lateral and oblique views of the great toe were obtained. COMPARISON: 10/26/2022 FINDINGS: Comminuted intra-articular fracture at the base of the right first distal phalanx. No significant livia nge in mild distraction of a small dorsal sided fragment with approximately 3 mm separation along the dorsal side of the fracture and approximately 1 mm fracture gap at the articular cortex. Decreasing lucency at the medial sided fracture fragment. There is no significant change in subtle linear lucenc y the lateral sided fracture fragment. Mild polyarticular osteoarthritis at the first meta tarsophalangeal and first interphalangeal joint. Mild to moderate osteoarthritis at the remaining vis ualized interphalangeal joints of the second-fourth toes. IMPRESSION: No significant change in a comminuted intra-articular fracture at the base of the right first distal phalanx. Reviewed, dictated and finalized at location A. IMPRESSION: No significant change in a comminuted intra-articular fracture at the base of t he right first distal phalanx.
== END 2022-12-01 13:16 | disposition home or self-care (01) ==
LOC: CHSIMG 13:20
PROVIDERS: PCP Family Medicine; Visit Provider Family Medicine
DX: S92.911A Unspecified fracture of right toe(s), initial encounter for closed fracture (principal)
CPT/HCPCS: 73660

== ENCOUNTER 2023-03-17 09:48 | Outpatient (CLI) | payer MEDICARE, SELFPAY ==
[2023-03-17 10:03] LABS: Basophils Absolute Auto 0.06 K/mm3 (0.00-0.10); Basophils Percent Auto 0.6 % (0.0-1.0); Eosinophils Absolute Auto 0.09 K/mm3 (0.02-0.50); Hematocrit 41.3 % (37.0-46.0); Hemoglobin 12.9 g/dL (12.4-15.3); Immature Granulocyte Absolute 0.03 K/mm3 (0.00-0.00); Immature Granulocyte Percent A 0.3 % (0.0-0.0); Lymphocytes Absolute Auto 1.64 K/mm3 (1.10-4.50); Lymphocytes Percent Auto 17.5 % (18.0-42.0); Mean Corpuscular HGB Conc 31.2 g/dL (32.0-36.0); Mean Corpuscular Hemoglobin 31.2 pg (27.0-31.0); Mean Corpuscular Volume 99.8 fL (78.0-102.0); Mean Platelet Volume 10.3 fl (8.7-11.0); Monocytes Absolute Auto 0.64 K/mm3 (0.10-0.90); Monocytes Percent Auto 6.8 % (2.0-11.0); Neutrophils Absolute Auto 6.9 K/mm3 (1.7-7.2); Neutrophils Percent Auto 73.8 % (50.0-70.0); Platelet Count Result 132 K/mm3 (150-420); Red Blood Count 4.14 M/mm3 (4.70-6.10); Red Cell Distribution Width 13.2 % (11.6-14.4); White Blood Count 9.4 K/mm3 (4.8-10.8)
[2023-03-17 10:32] LABS: Alanine Aminotransferase 16 U/L (16-63); Albumin Level 3.7 g/dL (3.4-5.0); Alkaline Phosphatase 145 U/L (46-116); Anion Gap 6 mmol/L (8-16); Aspartate Amino Transferase 12 U/L (15-37); Bilirubin,Total 0.2 mg/dL (0.00-1.00); Blood Urea Nitrogen 23 mg/dL (7-18); Calcium 8.6 mg/dL (8.5-10.1); Carbon Dioxide 31 mmol/L (21-32); Chloride 109 mmol/L (98-108); Cholesterol 156 mg/dL (0-200); Estimated Glomerular Filt Rate > 60; Glucose 94 mg/dL (70-99); HDL Direct 55 mg/dL (40-60); LDL Cholesterol Calculated 90 mg/dL (<130); Osmolality Calculated 305 mOsm/kg (285-295); Potassium 5.2 mmol/L (3.5-5.1); Sodium 146 mmol/L (136-145); Thyroid Stimulating Hormone 2.44 uIU/mL (0.36-3.74); Total Protein 7.2 g/dL (6.4-8.2); Triglycerides 55 mg/dL (0-150)
== END 2023-03-17 09:49 | disposition home or self-care (01) ==
PROVIDERS: PCP Family Medicine; Visit Provider Nurse Practitioner Family
DX: L03.032 Cellulitis of left toe (principal); R90.89 Other abnormal findings on diagnostic imaging of central nervous system; G40.909 Epilepsy, unspecified, not intractable, without status epilepticus; E78.5 Hyperlipidemia, unspecified
CPT/HCPCS: 36415; 80053; 80061; 84443; 85025; 87070; 87075; 87147; 87186; 87205

== ENCOUNTER 2023-04-23 12:30 | Outpatient (CLI) | payer MEDICARE, SELFPAY ==
[2023-04-23 12:50] LABS: Basophils Absolute Auto 0.06 K/mm3 (0.00-0.10); Basophils Percent Auto 0.8 % (0.0-1.0); Eosinophils Absolute Auto 0.15 K/mm3 (0.02-0.50); Eosinophils Percent Auto 1.9 % (1.0-6.0); Hematocrit 40.4 % (37.0-46.0); Hemoglobin 13.1 g/dL (12.4-15.3); Immature Granulocyte Absolute 0.02 K/mm3 (0.00-0.00); Immature Granulocyte Percent A 0.3 % (0.0-0.0); Lymphocytes Absolute Auto 1.84 K/mm3 (1.10-4.50); Mean Corpuscular HGB Conc 32.4 g/dL (32.0-36.0); Mean Corpuscular Hemoglobin 31.1 pg (27.0-31.0); Mean Platelet Volume 9.2 fl (8.7-11.0); Monocytes Absolute Auto 0.64 K/mm3 (0.10-0.90); Neutrophils Absolute Auto 5.3 K/mm3 (1.7-7.2); Platelet Count Result 170 K/mm3 (150-420); Red Blood Count 4.21 M/mm3 (4.70-6.10); Red Cell Distribution Width 13.2 % (11.6-14.4)
[2023-04-23 13:15] LABS: Alanine Aminotransferase 19 U/L (16-63); Albumin Level 3.8 g/dL (3.4-5.0); Alkaline Phosphatase 163 U/L (46-116); Anion Gap 8 mmol/L (8-16); Aspartate Amino Transferase 12 U/L (15-37); Bilirubin,Total 0.3 mg/dL (0.00-1.00); Blood Urea Nitrogen 19 mg/dL (7-18); Calcium 9.2 mg/dL (8.5-10.1); Carbon Dioxide 29 mmol/L (21-32); Chloride 107 mmol/L (98-108); Estimated Glomerular Filt Rate > 60; Glucose 99 mg/dL (70-99); Osmolality Calculated 300 mOsm/kg (285-295); Potassium 5.1 mmol/L (3.5-5.1); Sodium 144 mmol/L (136-145); Total Protein 6.9 g/dL (6.4-8.2)
== END 2023-04-23 12:31 | disposition home or self-care (01) ==
LOC: CHSLAB 12:32
PROVIDERS: PCP Family Medicine; Visit Provider Nurse Practitioner Family
DX: R79.89 Other specified abnormal findings of blood chemistry (principal); E87.8 Other disorders of electrolyte and fluid balance, not elsewhere classified
CPT/HCPCS: 36415; 73564; 80053; 85025

== ENCOUNTER 2023-05-01 12:09 | Outpatient (CLI) | payer MEDICARE, SELFPAY ==
--- NOTE | ~2023-05-01 | US_ITS ---
EXAMINATION: US venous doppler [facility] DATE: 05/01/2023 13:00 INDICATION: Left lower limb pain and swelling TECHNIQUE: Grayscale ultrasound images without and with compression and Doppler ultrasound images of the left lower extremity veins were obtained. COMPARISON: None. FINDINGS: The visualized portions of left common femoral vein, profunda (deep) femoral vein, femoral vein, popl iteal vein, peroneal veins, posterior tibial veins, gastrocnemius vein and greater saphenous vein out flow are patent. IMPRESSION: 1. No deep venous thrombosis in the left lower limb. Reviewed, dictated and finalized at location A.
--- NOTE | ~2023-05-01 | US_ITS ---
EXAMINATION: US arterial duplex LE LT DATE: 05/01/2023 12:59 INDICATION: Left lower limb pain and swelling TECHNIQUE: Multiple grayscale and Doppler ultrasound images of the arteries in the left lower limb we re obtained. COMPARISON: None FINDINGS: Cardiac arrhythmia is present. There is scattered atherosclerotic plaque along the left common femora l and superficial femoral arteries visible on grayscale imaging. Peak systolic velocities increased f rom 75 cm/s in the mid superficial femoral artery to 150 cm/s in the distal superficial femoral arter y with transition occurring in a region of prominent posterior acoustic shadowing of the intervening artery resulting from atherosclerotic plaque and which raises concern for hemodynamic significant carlos nosis. There are normal triphasic arterial waveforms in the left common femoral, profunda femoral, roy perficial femoral and popliteal arteries. Monophasic tri-inflectional waveforms in the more distal le ft peroneal, posterior tibial and anterior tibial arteries . Brisk systolic upstrokes throughout the arteries of the left lower limb. IMPRESSION: 1. Significant elevation in peak systolic velocity junction of the mid to distal left superficial fem oral artery which is obscured and this region by atherosclerotic calcifications which is suspicious f or a hemodynamically significant stenosis. There is however no evident broadening of the systolic pea ks in the more distal arteries. 2. Cardiac arrhythmia is present. Correlate with EKG. Reviewed, dictated and finalized at location A. IMPRESSION: 1. Significant elevation in peak systolic velocity junction of the mid to dista l left superficial femoral artery which is obscured and this region by atherosc lerotic calcifications which is suspicious for a hemodynamically significant st enosis. There is however no evident broadening of the systolic peaks in the mor e distal arteries. 2. Cardiac arrhythmia is present. Correlate with EKG.
== END 2023-05-01 12:10 | disposition home or self-care (01) ==
LOC: CHSIMG 12:11
PROVIDERS: PCP Family Medicine; Visit Provider Nurse Practitioner Family
DX: M79.89 Other specified soft tissue disorders (principal); I49.8 Other specified cardiac arrhythmias
CPT/HCPCS: 93926; 93971